=== PATIENT | female | born 1950 | race Caucasian/White ===

== ENCOUNTER → 2024-11-07 | Outpatient (CLI) | payer MEDICARE, SELFPAY ==
--- NOTE | 2024-11-07 | XR_ITS ---
Examination: Knee bilateral, 6 views Technique: Knee AP, lateral, oblique each knee total 6 views Date and time of exam: November 07, 2024 0731 hours Comparison December 06, 2023 INDICATIONS: Right knee pain beginning one year ago FINDINGS: Significant osteopenia Bilateral mild tricompartment osteoarthritis No fracture or dislocation involving either knee IMPRESSION: Mild bilateral tricompartment osteoarthritis
[2024-11-07 08:00] LABS: Quantiferon-TB* See Sep Rpt
[2024-11-07 08:22] LABS: Collection Type, Urine Clean Catch
[2024-11-07 08:57] LABS: Bilirubin,Urine Negative (Negative); Blood,Urine Negative (Negative); Clarity,Urine Clear (Clear/Hazy); Color,Urine Lt-Yellow (Lt Yel-Yel); Culture Indicated,Urine Not Indicated; Glucose, Urine Negative (Negative); Hyaline Casts,Urine < 1 /hpf (0-1); Ketones,Urine Negative (Negative); Leukocyte Esterase,Urine Positive (Negative); Nitrite,Urine Negative (Negative); PH,Urine 5.5 (5.0-7.0); Protein,Urine Negative (Neg - Trace); RBC,Urine 4 /hpf (0-3); Squamous Epithelial Cell,Urine < 1 /hpf (0-5); Urobilinogen,Urine Negative mg/dL (0.0-1.0); WBC,Urine 4 /hpf (0-5)
[2024-11-07 08:59] LABS: Basophils % (Auto) 1 % (0-2.5); Eosinophils # (Auto) 0.2 Thou/mm3 (0.0-0.5); Eosinophils % (Auto) 3 % (0-10); Hematocrit 36.4 % (36.0-46.0); Hemoglobin 12.4 g/dL (12.0-16.0); Immature Granulocytes % (Auto) 0 % (0-0); Immature Granulocytes Auto 0.01 Thou/mm3 (0.00-0.00); Lymphocytes # (Auto) 1.7 Thou/mm3 (1.0-4.8); Lymphocytes % (Auto) 26 % (10-50); Mean Corpuscular HGB Conc 34.1 g/dl (31.0-37.0); Mean Corpuscular Volume 91 fL (80-100); Monocytes # (Auto) 0.5 Thou/mm3 (0.0-0.8); Monocytes % (Auto) 8 % (0-12); Neutrophils # (Auto) 4.1 Thou/mm3 (1.8-7.7); Neutrophils % (Auto) 63 % (37-80); Nucleated Red Blood Cell % 0 /100 WBC (0); Platelet Count 239 Thou/mm3 (140-440); RDW Standard Deviation 43.4 fL (36.4-46.3); White Blood Count 6.5 Thou/mm3 (3.6-11.0)
[2024-11-07 09:17] LABS: Iron 99 mcg/dL (50-170); Total Iron Binding Capacity 343 mcg/dL (250-425)
[2024-11-07 09:18] LABS: Alanine Aminotransferase 26 U/L (10-49); Albumin, Serum 4.4 gm/dL (3.4-4.8); Albumin/Globulin Ratio 2.2 (1.2-2.2); Alkaline Phosphatase 73 U/L (46-116); Anion Gap 6 (7-16); Aspartate Amino Transferase 26 U/L (0-34); BUN/Creatinine Ratio 20 Ratio (12-20); Bilirubin,Total 0.6 mg/dL (0.3-1.2); Blood Urea Nitrogen 22 mg/dL (9-23); Calcium 9.8 mg/dL (8.3-10.6); Calcium (Corrected) 9.8 mg/dL (8.5-10.1); Carbon Dioxide 27.3 mMol/L (20.0-31.0); Cardiac Risk Estimate 2.7 RATIO (3.7-5.6); Chloride 107 mMol/L (98-107); Cholesterol 180 mg/dL (132-200); Creatinine (Component) 1.1 mg/dL (0.6-1.3); Free T4 (Free Thyroxine) 1.36 ng/dL (0.89-1.76); Glucose 80 mg/dL (74-106); HDL Cholesterol 67 mg/dL (40-60); LDL Cholesterol,Calculated 91 mg/dL (0-130); Osmolality,Calculated 281 (275-295); Phosphorous 3.1 mg/dL (2.4-5.1); Potassium 4.4 mMol/L (3.4-5.1); Sodium 140 mMol/L (136-145); Thyroid Stimulating Hormone 5.88 uIU/mL (0.55-4.78); Total Protein 6.4 gm/dL (5.7-8.2); Triglycerides 108 mg/dL (30-150); eGFR 52 See Note
[2024-11-07 09:22] LABS: Folate > 24.00 ng/mL (>5.38); Vitamin B12 606 pg/mL (211-911)
[2024-11-13 06:45] LABS: T3 Uptake* 33 % (22-35); T3, Reverse, LC/MS/MS* 22 ng/dL (8-25)
== END | disposition home or self-care (01) ==
LOC: CDIM 06:48 → COPL 07:42
PROVIDERS: PCP Internal Medicine; Referring Provider Nurse Practitioner Family; Visit Provider Nurse Practitioner Family
DX: Z00.00 Encounter for general adult medical examination without abnormal findings (principal); M17.0 Bilateral primary osteoarthritis of knee; M48.061 Spinal stenosis, lumbar region without neurogenic claudication
CPT/HCPCS: 36415; 73562; 80053; 80061; 81001; 82306; 82607; 82746; 83540; 83550; 84100; 84439; 84443; 84479; 84482; 85025; 86480

== ENCOUNTER 2025-05-22 10:32 | Outpatient (AMB) | payer MEDICARE, SELFPAY ==
--- NOTE | 2025-05-22 10:56 | PD.ORTHCLVIS ---
Vital signs 05/22/25 10:57 Height 1.6 m Height Method Measured Weight 70.42 kg Weight Measurement Method Standing Scale BMI 27.5 BP 144/74 H Blood Pressure Source Automatic Cuff Blood Pressure Location Left Upper Arm Position Sitting Respiration 18 Pulse 68 Pulse Source Monitor Temp 97.8 F Temp Source Temporal Artery Scan Pulse Oximetry (%) 96 Oxygen Delivery Method Room Air Med/Allergies Allergies & Medications Allergies Penicillins Allergy (Unknown, Verified 05/22/25 10:58) BEE STINGS Allergy (Unknown, Uncoded 05/22/25 10:58) NKA Allergy (Unknown, Uncoded 05/22/25 10:58) PCN Allergy (Unknown, Uncoded 05/22/25 10:58) Medication Reconciliation atorvastatin 10 mg tablet 10 mg PO QDAY 05/22/25 [History Confirmed 05/22/25] diclofenac sodium 75 mg tablet,delayed release 75 mg PO BID 05/22/25 [History Confirmed 05/22/25] hydrocodone 7.5 mg-acetaminophen 325 mg/15 mL oral solution 15 ml PO Q6H PRN 05/22/25 [History Confirmed 05/22/25] levothyroxine 25 mcg capsule 25 mcg PO QDAY 05/22/25 [History Confirmed 05/22/25] potassium chloride 8 mEq capsule,extended release 8 meq PO QDAY 05/22/25 [History Confirmed 05/22/25] propranolol 80 mg capsule,24 hr,extended release 80 mg PO QDAY 05/22/25 [History Confirmed 05/22/25] Exam Exam Patient is in no acute distress and is cooperative with the examination today. Breathing is nonlabored. In no respiratory distress. Bilateral extremities were evaluated and demonstrates sensation intact to light touch. Palpable pedal pulses are present. No significant edema is present. Bilateral hips were examined. The patient has no pain with log roll of the hips. Internal rotation to 30 degrees and external rotation to 30 degrees is painless. Negative FADIR. The left knee was examined. The left knee is in varus alignment. Range of motion from 0-115 degrees. Knee is stable to varus and valgus as well as AP translation with <5mm. Patient has a negative McMurrays. There is no pain with patellofemoral compression and no crepitus noted. The knee is tender to palpation medially. The right knee was also examined. The right knee is in varus alignment. Range of motion from 0-120 degrees. Knee is stable to varus and valgus as well as AP translation with <5mm. Patient has a negative McMurrays. There is no pain with patellofemoral compression and no crepitus noted. The knee is tender to palpation medially. X-rays demonstrate mild arthritis. These are nonweightbearing films Assessment and Plan Problem List (1) Degenerative arthritis of knee, bilateral: Status: Acute Plan: Patient is a pleasant 74-year-old female with bilateral knee pain and bilateral knee arthritis. Her right knee pain is worse than the left. We will try a cortisone injection today of the right knee. I would also like to get weightbearing films Recommend knee cortisone injection as patient would like to proceed with conservative treatment at this time. The risks and benefits of the procedure were reviewed with the patient and patient gave verbal consent to continue with the procedure. Procedure: performed by Dr. Gonzalez Using sterile technique the Right knee was thoroughly prepped with alcohol, and approximately 1 cc of Depo-Medrol 80mg/mL and 4 cc of 0.2% ropivacaine was injected without resistance into the medial tibial femoral joint space. The patient tolerated the procedure. Advanced Care Planning Discussion Advance care planning discussed with:: patient Office Procedures GNS Level of Care Nursing/Assessment Patient Status: Initial/New Patient Nursing Assessment/Reassesment: Medication Reconciliation, Update PMH in EMR and Vital Signs Coordination of Care: Complex Care and Chronic Disease 1-5, Education Complex Pt/Fam, Consent,records obtained, informed consent, Lab and Imaging orders, Results/Orders obtained and Staff clarify orders New Patient Charge New Patient Point Assignment: 1109 New Patient Point Charge: DINKEY OPERATOR SLATE Level 3 (1210-4795) Surgical Proc/IM SQ injection Minor Surgical Procedure: Yes (LEFT KNEE INJECTION) Medication Given Medication Given Medication Given: Yes Documented Dose Given: 1 Route: Infiitration Medication Given Medication Given Medication Given: Yes Documented Dose Given: 4 Route: Infiitration Office Meds methylprednisolone acetate 80 mg/mL suspension for injection Performing Provider: Stef Gonzalez MD Performing Location: [facility] Administered by: Stef Gonzalez MD on 05/22/25 11:13 Dose Route Admin Location Dispensed Lot Number Expiration Date Package [facility] Usability Engineer 80 mg intra-articular 1 mL [id number] 08/03/26 [address]-0 [id number] [employer] ropivacaine (PF) 2 mg/mL (0.2 %) injection solution Performing Provider: Stef Gonzalez MD Performing Location: [facility] Administered by: Stef Gonzalez MD on 05/22/25 11:13 Dose Route Admin Location Dispensed Lot Number Expiration Date Package NDC NDC Usability Engineer 20 mL Infiltration 20 mL [id number] 10/03/27 87421-092-32 [id number] [facility] Intake Visit Data Collection New Patient or Established: New Patient (never been to [facility]) Reason for Visit:: BILATERAL KNEE OSTEOARTHRITIS Seen by Clinical Staff ONLY (RN/MA): No Issue Clerk Required: No PCP or OBGYN visit in last 3 months: Yes Hx Now: No Do You Feel Safe at Home: Yes Authorities Contacted: N/A Questionairres Past Medical History Past Medical History Have you ever been diagnosed with any of the following: Cardiology Problems Congestive Heart Failure: No Hypotension: Yes Respiratory Problems Chronic Obstructive Pulmonary Disease (COPD): No Genital/Urinary Problems Renal Disease: Yes Endocrine Problems Diabetes Mellitus Type 1: No Diabetes Mellitus Type 2: No Subjective Visit Visit for: new patient and knee Immunization / Flu Flu Vaccine in the Last 12 Months: No Flu Vaccine Exclusion Criteria: Refused by Patient History of Present Illness Chief complaint: BILATERAL KNEE OSTEOARTHRITIS Date of injury / onset of symptoms: 2 YEARS Shirley is a pleasant 74-year-old female with bilateral knee pain worse on the right. This been present for several years but worsened in the last year and a half. She has not had any injections but has had oral diclofenac. The pain is all over the right knee. She would like to try cortisone injection today. She has not had any standing x-rays Personal History Occupation: RETIRED Red flag PMH: none BMI Counceling provided: No Pain Pain level (0-10): 2 Pain location: inside (medial), outside (lateral), anterior and posterior Pain quality: sharp and dull Pain timing: night Associated signs & symptoms: weakness Ambulatory data Ambulatory device: cane Treatments Number of previous injections: 0 Improvement with previous injections: No Number of Physical Therapy sessions: 0 Improvement with PT: No Improvement with NSAIDS: yes (DICLOFENAC) Review of Systems Review of Systems: All systems negative unless otherwise noted in HPI.
[2025-05-22 10:57] VITALS: BP 144/74; PULSE 68; RESP 18; TEMP 36.6; O2SAT 96; BMI 27.5
--- NOTE | 2025-05-22 11:04 | XR_ITS ---
Examination: Bilateral knees 2 views Bilateral knee left lateral knee 2 views Bilateral axial knees single view TECHNIQUE: Bilateral AP knees standing single view, bilateral PA knees standing single view flexion Standing right lateral knee left lateral knee 2 views Bilateral axial knees single view Date and time: May 22, 2025 11:12 AM INDICATIONS: Bilateral knee pain beginning 4 years ago. FINDINGS: Severe narrowing [id number] lateral joint space right knee Moderate osteoarthritis right patellofemoral joint No fracture Mild narrowing medial lateral and left patellofemoral joints IMPRESSION: Severe narrowing, [id number], lateral joint space right knee
== END 2025-05-22 11:12 | disposition home or self-care (01) ==
PROVIDERS: PCP Internal Medicine; Referring Provider Internal Medicine; Supervising Provider Orthopaedic Surgery Adult Reconstructive Orthopaedic Surgery; Visit Provider Orthopaedic Surgery Adult Reconstructive Orthopaedic Surgery
DX: M17.0 Bilateral primary osteoarthritis of knee (principal); M25.562 Pain in left knee; M25.561 Pain in right knee
CPT/HCPCS: 20610; 73564; 99203; J1010; J2795; G0463

== ENCOUNTER 2025-08-22 09:50 | Outpatient (AMB) | payer MEDICARE, SELFPAY ==
[2025-08-22 10:01] VITALS: BP 110/69; PULSE 87; RESP 18; TEMP 36.3; O2SAT 95; BMI 31.2
--- NOTE | 2025-08-22 10:01 | ORTHONT_ITS ---
Vital signs 08/22/25 10:01 Height 1.6 m Height Method Stated Weight 79.974 kg Weight Measurement Method Standing Scale BMI 31.2 BP 110/69 Blood Pressure Source Automatic Cuff Blood Pressure Location Right Upper Arm Position Sitting Respiration 18 Pulse 87 Pulse Source Monitor Temp 97.4 F Temp Source Temporal Artery Scan Pulse Oximetry (%) 95 Oxygen Delivery Method Room Air Med/Allergies Allergies & Medications Allergies Penicillins Allergy (Unknown, Verified 08/22/25 10:02) BEE STINGS Allergy (Unknown, Uncoded 08/22/25 10:02) NKA Allergy (Unknown, Uncoded 08/22/25 10:02) PCN Allergy (Unknown, Uncoded 08/22/25 10:02) Medication Reconciliation atorvastatin 10 mg tablet 10 mg PO QDAY 05/22/25 [History Confirmed 08/22/25] diclofenac sodium 75 mg tablet,delayed release 75 mg PO BID 05/22/25 [History Confirmed 08/22/25] hydrocodone 7.5 mg-acetaminophen 325 mg/15 mL oral solution 15 ml PO Q6H PRN 05/22/25 [History Confirmed 08/22/25] levothyroxine 25 mcg capsule 25 mcg PO QDAY 05/22/25 [History Confirmed 08/22/25] potassium chloride 8 mEq capsule,extended release 8 meq PO QDAY 05/22/25 [History Confirmed 08/22/25] propranolol 80 mg capsule,24 hr,extended release 80 mg PO QDAY 05/22/25 [History Confirmed 08/22/25] Exam Exam Patient is in no acute distress and is cooperative with the examination today. Breathing is nonlabored. In no respiratory distress. Bilateral extremities were evaluated and demonstrates sensation intact to light touch. Palpable pedal pulses are present. No significant edema is present. Bilateral hips were examined. The patient has no pain with log roll of the hips. Internal rotation to 30 degrees and external rotation to 30 degrees is painless. Negative FADIR. The left knee was examined. The left knee is in varus alignment. Range of motion from 0-115 degrees. Knee is stable to varus and valgus as well as AP translation with <5mm. Patient has a negative McMurrays. There is no pain with patellofemoral compression and no crepitus noted. The knee is tender to palpation medially. The right knee was also examined. The right knee is in varus alignment. Range of motion from 0-120 degrees. Knee is stable to varus and valgus as well as AP translation with <5mm. Patient has a negative McMurrays. There is no pain with patellofemoral compression and no crepitus noted. The knee is tender to palpation medially. x-rays demonstrate severe arthritis of the right knee with lateral joint space narrowing Assessment and Plan Problem List (1) Degenerative arthritis of knee, bilateral: Status: Acute Plan: Patient is a pleasant 74-year-old female with bilateral knee pain and bilateral knee arthritis. Her right knee pain is worse than the left. she did not get great relief with the cortisone injection and would like to try different type. We thus discussed Synvisc 1 and hyaluronic acid as a reasonable option Recommend knee hyaluronic acid injection as patient would like to proceed with conservative treatment at this time. The risks and benefits of the procedure were reviewed with the patient and patient gave verbal consent to continue with the procedure. Procedure: performed by Dr. Gonzalez Using sterile technique the Right knee was thoroughly prepped with alcohol, and entire syringe of Synvisc 1 was injected into the patient's right knee and the tibiofemoral joint space. The patient tolerated the procedure well Advanced Care Planning Discussion Advance care planning discussed with:: patient Office Procedures GNS Level of Care Nursing/Assessment Patient Status: Established Patient Nursing Assessment/Reassesment: Medication Reconciliation, Update PMH in EMR and Vital Signs Coordination of Care: Complex Care and Chronic Disease 1-5, Education Complex Pt/Fam, Consent,records obtained, informed consent, Results/Orders obtained and Staff clarify orders Established Patient Charge Established Patient Point Assignment: 95 Established Patient Point Charge: EP Level 3 (80-115) Surgical Proc/IM SQ injection Minor Surgical Procedure: Yes (KNEE GEL INJECTION) Medication Given Medication Given Medication Given: Yes Documented Dose Given: 1 Route: Infiitration Office Meds Hyalgan 10 mg/mL intra-articular syringe Performing Provider: Stef Gonzalez MD Performing Location: [facility] Administered by: Stef Gonzalez MD on 08/22/25 11:23 Dose Route Admin Location Dispensed Lot Number Expiration Date Pack age NDC NDC Cytotechnologist/Cytology Supervisor 20 mg intra-articular 20 mL [id number] 02/02/28 [id number] [place] Intake Visit Data Collection New Patient or Established: Established Patient (seen at [facility] within 3 years) Reason for Visit:: FOLLOW UP ON KNEE INJECTION Seen by Clinical Staff ONLY (RN/MA): No Verbal consent obtained for Telemed visit?: No [employer] Required: No PCP or OBGYN visit in last 3 months: Yes Hx Now: No Do You Feel Safe at Home: Yes Authorities Contacted: N/A Questionairres Past Medical History Past Medical History Have you ever been diagnosed with any of the following: Cardiology Problems Congestive Heart Failure: No Hypotension: Yes Respiratory Problems Chronic Obstructive Pulmonary Disease (COPD): No Genital/Urinary Problems Renal Disease: Yes Endocrine Problems Diabetes Mellitus Type 1: No Diabetes Mellitus Type 2: No Subjective Visit Visit for: follow up visit, knee and injections Immunization / Flu Flu Vaccine in the Last 12 Months: No Flu Vaccine Exclusion Criteria: No Exclusion Criteria History of Present Illness Chief complaint: KNEE INJECTION FOLLOW UP Date of injury / onset of symptoms: 2 YEARS Shirley is a pleasant 74-year-old female with bilateral knee pain worse on the right. This been present for several years but worsened in the last year and a half. S the last injection has not helped too much. The patient has had diclofenac both an oral and cream formulation Personal History Occupation: RETIRED Red flag PMH: BMI BMI Counceling provided: Yes Pain Pain level (0-10): 10 Pain duration: ALL DAY Pain location: inside (medial), outside (lateral), anterior and posterior Pain quality: sharp and dull Pain timing: night Associated signs & symptoms: weakness Ambulatory data Ambulatory device: none Treatments Number of previous injections: 0 Improvement with previous injections: No Number of Physical Therapy sessions: 0 Improvement with PT: No Improvement with NSAIDS: no Review of Systems Review of Systems: All systems negative unless otherwise noted in HPI.
== END 2025-08-22 10:16 | disposition home or self-care (01) ==
LOC: HODSRG 09:50
PROVIDERS: PCP Internal Medicine; Referring Provider Internal Medicine; Supervising Provider Orthopaedic Surgery Adult Reconstructive Orthopaedic Surgery; Visit Provider Orthopaedic Surgery Adult Reconstructive Orthopaedic Surgery
DX: M17.0 Bilateral primary osteoarthritis of knee (principal); M25.562 Pain in left knee; M25.561 Pain in right knee
CPT/HCPCS: 20610; 99213; G0463; J7325